=== PATIENT | female | born 1960 | race Caucasian/White ===

== ENCOUNTER → 2016-07-14 | Outpatient (REF) | payer OTHER ==
[2016-07-16 08:11] LABS: Lyme Disease IgG Ab 18 kDa Ban Present (.); Lyme Disease IgG Ab 23 kDa Ban Present (.); Lyme Disease IgG Ab 28 kDa Ban Absent (.); Lyme Disease IgG Ab 30 kDa Ban Absent (.); Lyme Disease IgG Ab 39 kDa Ban Present (.); Lyme Disease IgG Ab 41 kDa Ban Present (.); Lyme Disease IgG Ab 45 kDa Ban Present (.); Lyme Disease IgG Ab 58 kDa Ban Present (.); Lyme Disease IgG Ab 66 kDa Ban Absent (.); Lyme Disease IgG Ab 93 kDa Ban Absent (.); Lyme Disease IgG West Blot Int Positive (.); Lyme Disease IgG/IgM Antibodie 1.12 ISR (0.00-0.90); Lyme Disease IgM Ab 23 kDa Ban Present (.); Lyme Disease IgM Ab 39 kDa Ban Absent (.); Lyme Disease IgM Ab 41 kDa Ban Absent (.); Lyme Disease IgM Ab Quantitati <0.80 index (0.00-0.79); Lyme Disease IgM West Blot Int Negative (.)
== END ==
LOC: M LAB REF 12:07
PROVIDERS: ATTEND Nurse Practitioner Family
DX: R53.83 Other fatigue (principal); R11.0 Nausea

== ENCOUNTER → 2016-08-03 | Outpatient (CLI) | payer OTHER ==
--- NOTE | 2016-08-03 14:14 | REPMRS ---
Patient History The patient states she has not had a clinical breast exam in over a year. Patient is postmenopausal and had first child after 29. Family history of ovarian cancer in mother at age 50 or over, breast cancer in maternal aunt at age 50 or over, and breast cancer in maternal grandmother. Digital Woman Screen Mammo: August 03, 2016 - Exam #: [id number] Bilateral CC and MLO view(s) were taken. Technologist: Patricia Reyes, Technologist Prior study comparison: December 07, 2014, digital woman screen mammo performed at [facility]. February 07, 2011, bilateral digital woman screen mammo performed at [facility]. FINDINGS: The breast tissue is heterogeneously dense. This may lower the sensitivity of mammography. There has been no change in the appearance of the mammogram from the prior studies. There is a moderate amount of residual fibroglandular tissue which is fairly symmetric. There is no interval development of dominant mass, areas of architectural distortion, or clustered microcalcification typical of malignancy. ASSESSMENT: BI-RADS/ACR category 1 mammogram. Negative. Recommendation Routine screening mammogram in 1 year (for women over age 40). This mammogram was interpreted with the aid of an FDA-approved computer-aided dectection system. Electronically Signed By: Yasmani Johnson MD 08/03/16 0353
--- NOTE | 2016-08-09 10:53 | DEXA ---
AP SPINE L1 - L4 1.185 -0.1 0.8 LT FEMUR TOTAL 0.976 -0.3 0.5 RT FEMUR TOTAL 0.995 -0.1 0.6 TOTAL BODY TOTAL OTHER DUAL FEMUR FRAX* ASSESSMENT Risk factors: None. 10 year probability of fracture Major osteoporotic fracture 6.0 % Hip fracture 0.2 % COMMENTS: Normal bone densitometry of the spine and hips. FOLLOW-UP: Recommendation for the next bone density exam: 5 years. MTDD
== END ==
LOC: M WHC 12:49
PROVIDERS: ATTEND Internal Medicine
DX: R92.2 Inconclusive mammogram (principal); Z78.0 Asymptomatic menopausal state; Z80.41 Family history of malignant neoplasm of ovary; M85.80 Other specified disorders of bone density and structure, unspecified site
CPT/HCPCS: 77080; G0202

== ENCOUNTER → 2016-08-18 | Outpatient (REF) | payer OTHER | LOC: M LAB REF 17:07 | PROVIDERS: ATTEND Internal Medicine | DX: D64.9 Anemia, unspecified (principal) ==

== ENCOUNTER 2017-06-28 08:01 | Day surgery (SDC) | payer OTHER ==
[2017-06-28] MEDS: TROPICAMIDE 1% OPHTH SOLN 2ML OD (08:35)
[2017-06-28] MEDS: PROPARACAINE 0.5% OPHTH SOL 15ML OD (08:35)
[2017-06-28] MEDS: PHENYLEPHRINE 2.5% OPHTH SOL 2ML OD (08:35)
[2017-06-28] MEDS: OFLOXACIN 0.3 % (OCUFLOX) OPTH SOL 5ML OD (08:35)
[2017-06-28] MEDS ORDERED: MIDAZOLAM INJ 2 MG/2 ML VIAL (J2250) As Ordered (08:58)
[2017-06-28] MEDS ORDERED: fentaNYL 100 MCG/2 ML INJECTION (J3010) As Ordered (08:58)
[2017-06-28] MEDS: BALANCED SALT IRRIGATION SOLUTION 500ML BAG (FOR OR EYE MACHINE) As Ordered (09:51)
[2017-06-28] MEDS: LIDOCAINE 0.75%/EPINEPHRINE 0.025% IN BSS 1ML SYR INTRACAMERAL (OR ONLY) As Ordered (09:51)
[2017-06-28] MEDS: DUOVISC (0.50ML VISCOAT/0.55ML PROVISC) OPHTH KIT As Ordered (09:51)
[2017-06-28] MEDS: CEFUROXIME 1MG/0.1ML INTRACAMERAL INJ As Ordered (09:51)
[2017-06-28] MEDS: POVIDONE-IODINE 5% OPHTH PREP SOL 30ML As Ordered (09:51)
[2017-06-28] MEDS: ACETYLCHOLINE OPHTH SOLN 1% 2ML (MIOCHOL-E) As Ordered (10:01)
== END 2017-06-28 10:45 | disposition home or self-care (01) ==
LOC: M SDC 08:01
DX: H25.11 Age-related nuclear cataract, right eye (principal)
CPT/HCPCS: 66984

== ENCOUNTER 2017-07-03 07:28 | Day surgery (SDC) | payer OTHER ==
[2017-07-03] MEDS: LR 1,000 ML IV (07:30)
[2017-07-03] MEDS ORDERED: PROPOFOL 200 MG/20 ML VIAL As Ordered ×2 (08:48→09:11)
== END 2017-07-03 09:51 | disposition home or self-care (01) ==
LOC: M OPP 07:28
DX: Z12.11 Encounter for screening for malignant neoplasm of colon (principal); K57.30 Diverticulosis of large intestine without perforation or abscess without bleeding; Z78.0 Asymptomatic menopausal state; Z86.19 Personal history of other infectious and parasitic diseases
CPT/HCPCS: 45378

== ENCOUNTER → 2017-12-06 | Outpatient (REF) | payer OTHER ==
[2017-12-09 00:06] LABS: EBV VIRAL CAPSID AG IgM <36.0 U/mL (0.0-35.9); Lyme Disease IgG/IgM Antibodie <0.91 ISR (0.00-0.90); Lyme Disease IgM Ab Quantitati <0.80 index (0.00-0.79)
== END ==
LOC: M LAB REF 17:29
DX: A69.20 Lyme disease, unspecified (principal); R53.83 Other fatigue
CPT/HCPCS: 86665

== ENCOUNTER → 2018-03-08 | Outpatient (REF) | payer OTHER ==
[2018-03-08 16:09] LABS: SLIDE REVIEW Report; SOURCE PERIPHERAL SMEAR
== END ==
LOC: M LAB REF 15:56
DX: D72.819 Decreased white blood cell count, unspecified (principal)

== ENCOUNTER → 2018-05-30 | Outpatient (CLI) | payer OTHER ==
[~2018-05-30] MED LIST: MULT1TAB18 PO
--- NOTE | 2018-05-30 16:26 | REPMRS ---
Patient History The patient states she had a clinical breast exam in 03/10 Patient is postmenopausal . Family history of ovarian cancer at age 50 or over in mother, breast cancer at age 50 or over in maternal aunt, breast cancer in maternal grandmother, prostate cancer at age 50 or over in father. Digital Woman Screen Mammo: May 30, 2018 - Exam #: [id number] Bilateral CC and MLO view(s) were taken. Technologist: Alla Larson, Technologist Prior study comparison: August 03, 2016, digital woman screen mammo performed at [facility]. December 07, 2014, digital woman screen mammo performed at [facility]. February 07, 2011, bilateral digital woman screen mammo performed at [facility]. FINDINGS: The breast tissue is heterogeneously dense. This may lower the sensitivity of mammography. There is a moderate amount of heterogeneously dense fibroglandular tissue which is fairly symmetric. There is no interval development of dominant mass, architectural distortion, or clustered microcalcification typical of malignancy. There has been no change in the appearance of the mammogram from the prior studies. 3-D tomosynthesis shows no additional findings. Assessment: BI-RADS/ACR category 1 mammogram. Negative Mammogram. Recommendation Routine screening mammogram of both breasts in 1 year (for women over age 40). This patient's Lifetime Breast Cancer RIsk is estimated at 13.5 %. This mammogram was interpreted with the aid of an FDA-approved computer-aided dectection system. Electronically Signed By: Gavino Lopez MD 05/30/18 [id number]
== END ==
LOC: M WHC 12:54
PROVIDERS: ATTEND Internal Medicine
DX: Z12.31 Encounter for screening mammogram for malignant neoplasm of breast (principal); Z78.0 Asymptomatic menopausal state; Z80.41 Family history of malignant neoplasm of ovary; Z80.3 Family history of malignant neoplasm of breast; Z80.42 Family history of malignant neoplasm of prostate

== ENCOUNTER → 2019-02-03 | Outpatient (REF) | payer OTHER | LOC: M LAB REF 12:34 | PROVIDERS: ATTEND Internal Medicine | DX: D64.9 Anemia, unspecified (principal) ==

== ENCOUNTER 2019-03-19 12:15 | Outpatient (RCR) | payer OTHER | END 2019-03-22 | LOC: M PT 12:15 | PROVIDERS: ATTEND Orthopaedic Surgery | DX: Z47.89 Encounter for other orthopedic aftercare (principal); M54.16 Radiculopathy, lumbar region; M47.896 Other spondylosis, lumbar region ==

== ENCOUNTER 2019-04-02 16:00 | Outpatient (RCR) | payer OTHER | END 2019-04-22 | LOC: M PT 16:00 | PROVIDERS: ATTEND Orthopaedic Surgery | DX: M54.5 Low back pain (principal) ==

== ENCOUNTER 2019-11-04 22:59 | Emergency (ER) | payer OTHER ==
[~2019-11-04] VITALS: Ht 162.6 cm; Wt 76.5 kg
[2019-11-04] MEDS ORDERED: METR-265 (23:07)
[2019-11-04] MEDS ORDERED: LEVO500T3 (23:07)
[2019-11-05 00:51] LABS: BASO % 0.6 % (0.0-1.0); EOS # 0.1 10^3/uL (0.0-0.5); EOS % 1.8 % (0.0-3.0); HEMATOCRIT 35.7 % (36.0-47.0); HEMOGLOBIN 11.7 g/dl (12.0-15.5); LYMPH # 1.9 10^3/uL (1.5-5.0); LYMPH % 28.1 % (24.0-44.0); MEAN CORPUSCULAR HEMOGLOBIN 30.8 pg (27.0-33.0); MEAN CORPUSCULAR HGB CONC 32.8 g/dl (32.0-36.5); MEAN CORPUSCULAR VOLUME 93.9 fl (80.0-96.0); MONO # 0.7 10^3/uL (0.0-0.8); NEUTROPHILS # 3.9 10^3/uL (1.5-8.5); NEUTROPHILS % 58.2 % (36.0-66.0); PLATELET COUNT, AUTOMATED 318 10^3/uL (150-450); WHITE BLOOD COUNT 6.6 10^3/uL (4.0-10.0)
[2019-11-05 01:01] LABS: INR 1.11
[2019-11-05 01:02] LABS: PARTIAL THROMBOPLASTIN TIME 32.1 SECONDS (25.0-38.4)
[2019-11-05 01:15] LABS: CALCIUM LEVEL 8.7 MG/DL (8.8-10.2); CREATININE FOR GFR 1.02 MG/DL (0.55-1.30); GLOMERULAR FILTRATION RATE 58.8 (>45); POTASSIUM SERUM 3.7 MEQ/L (3.5-5.1)
[2019-11-05 01:45] VITALS: BP 102/66
== END 2019-11-05 01:49 | disposition home or self-care (01) ==
LOC: M ED 22:59
DX: K64.8 Other hemorrhoids (principal); K62.5 Hemorrhage of anus and rectum; K57.93 Diverticulitis of intestine, part unspecified, without perforation or abscess with bleeding; Z79.899 Other long term (current) drug therapy

== ENCOUNTER → 2020-01-02 | Outpatient (CLI) | payer OTHER ==
[~2020-01-02] MED LIST changes: +GASTROGRAFIN SOLUTION 30ML (Q9963) As Ordered ONE; +ISOVUE-370 76% 100ML VIAL As Ordered ONE; +LEVO500T3; +METR-265
--- NOTE | 2020-01-02 12:57 | REPVR ---
PROCEDURE INFORMATION: Exam: CT Abdomen And Pelvis Without And With Contrast Exam date and time: 01/02/2020 11:40 AM Age: 59 years old Clinical indication: Abdominal pain; Additional info: Llq pain, weight loss TECHNIQUE: Imaging protocol: Computed tomography of the abdomen and pelvis without and with intravenous contrast. Radiation optimization: All CT scans at this facility use at least one of these dose optimization techniques: automated exposure control; mA and/or kV adjustment per patient size (includes targeted exams where dose is matched to clinical indication); or iterative reconstruction. Contrast material: ISOVUE 370; Contrast volume: 100 ml; Contrast route: INTRAVENOUS (IV); COMPARISON: No relevant prior studies available. FINDINGS: Heart: Heart size is mildly enlarged. There is a small hiatal hernia. There is minimal posterior dependent atelectasis at the lung bases. Liver: There may be minimal diffuse fatty liver change. Gallbladder and bile ducts: Normal. No calcified stones. No ductal dilation. Pancreas: Normal. No ductal dilation. Spleen: Normal. No splenomegaly. Adrenals: Normal. No mass. Kidneys and ureters: Normal. No hydronephrosis. Stomach: There are multiple colonic diverticula. There is wall thickening throughout the rectosigmoid colon. There is a small multilobulated collection of lobulated air in the left lower quadrant near midline between proximal sigmoid colon and small bowel loops. This is most likely a combination of pericolonic abscess associated with prior diverticulitis, and adjacent abscess with thick wall and adjacent fat stranding which abuts to small bowel loops anteriorly and posteriorly. Small bowel to small bowel and potentially colonic to small-bowel fistulas are possible. This entire region measures up to 3.5 cm mediolateral by 2.7 cm anterior-posterior, without clearly drainable fluid collection. No bowel dilatation to indicate obstruction. Appendix: No evidence of appendicitis. Vasculature: Unremarkable. No abdominal aortic aneurysm. Lymph nodes: Unremarkable. No enlarged lymph nodes. Bladder: Unremarkable as visualized. Reproductive: Unremarkable as visualized. Bones/joints: There is no acute osseous abnormality. Soft tissues: Unremarkable. IMPRESSION: 1. Small pericolonic abscess from presumed prior diverticulitis, with a component abutting 2 small bowel loops with possible fistula between small bowel loops and potentially between colon and small bowel. 2. Additional findings: Mild cardiomegaly. Small hiatal hernia. Electronically signed by: Tasneem Balderas On 01/02/2020 12:56:24 PM
== END ==
LOC: M RAD 09:39
PROVIDERS: ATTEND Registered Nurse
DX: R10.32 Left lower quadrant pain (principal); R63.0 Anorexia; R11.0 Nausea
CPT/HCPCS: 74178; Q9963; Q9967

== ENCOUNTER → 2020-01-02 | Outpatient (REF) | payer OTHER ==
[~2020-01-02] MED LIST changes: -GASTROGRAFIN SOLUTION 30ML (Q9963) As Ordered ONE; -ISOVUE-370 76% 100ML VIAL As Ordered ONE
== END ==
LOC: M LAB REF 12:18
PROVIDERS: ATTEND Registered Nurse
DX: R10.32 Left lower quadrant pain (principal)

== ENCOUNTER → 2020-01-09 | Outpatient (REF) | payer OTHER | LOC: M LAB REF 16:32 | PROVIDERS: ATTEND Registered Nurse | DX: R10.32 Left lower quadrant pain (principal) ==

== ENCOUNTER → 2020-01-09 | Outpatient (CLI) | payer OTHER ==
[~2020-01-09] MED LIST changes: +GASTROGRAFIN SOLUTION 30ML (Q9963) As Ordered ONE; +ISOVUE-370 76% 100ML VIAL As Ordered ONE
--- NOTE | 2020-01-22 11:58 | REP ---
CT ABDOMEN AND PELVIS WITHOUT AND WITH INTRAVENOUS (IV) CONTRAST: WITH ORAL CONTRAST HISTORY: Pericolonic abscess. COMPARISON: CT study 01/02/2020. CT CONTRAST DOSE: 100 mL of intravenous Isovue-[address] FINDINGS: Preliminary digital damage prevention coordinator radiograph is unremarkable. The lung bases are clear on axial CT images. The liver and the spleen are normal in size and homogeneous in texture on pre- and postcontrast images. No adrenal lesion is seen. No abnormality is noted in the pancreas or gallbladder. The kidneys enhance symmetrically and are morphologically intact. No retroperitoneal mass or adenopathy is observed. Small and large bowel loops are normal in the upper abdomen. Pelvic CT images demonstrate one or two diverticula in the cecum. Appendix is normal. There is diverticulosis in the sigmoid colon. The pericolonic inflammation and pericolonic abscess seen at the time of the 01/02/2020 study is much improved. There is only an 8 mm air bubble in the pericolonic soft tissues and minimal inflammatory change persists. No evidence of free intraperitoneal air is seen. Exam is otherwise unremarkable. IMPRESSION: Findings consistent with improved diverticulitis of the sigmoid colon. An 8 mm air collection remains in place in the improved pericolonic abscess. Pericolonic inflammation is improved. No MTDD
== END ==
LOC: M RAD 11:37
PROVIDERS: ATTEND Registered Nurse
DX: K63.0 Abscess of intestine (principal)
CPT/HCPCS: 74178; Q9963; Q9967

== ENCOUNTER → 2020-02-05 | Outpatient (CLI) | payer OTHER ==
[~2020-02-05] MED LIST changes: -GASTROGRAFIN SOLUTION 30ML (Q9963) As Ordered ONE; -ISOVUE-370 76% 100ML VIAL As Ordered ONE
--- NOTE | 2020-02-05 12:35 | REPMRS ---
Patient History The patient states she has not had a clinical breast exam in over a year. Family history of ovarian cancer at age 50 or over in mother, breast cancer at age 50 or over in maternal aunt, breast cancer in maternal grandmother, prostate cancer at age 50 or over in father. Digital Woman Screen Mammo: February 05, 2020 - Exam #: [id number] Bilateral CC and MLO view(s) were taken. Technologist: Yana Bingham, Technologist Prior study comparison: May 30, 2018, bilateral digital woman screen mammo performed at [facility]. August 03, 2016, digital woman screen mammo performed at [facility]. December 07, 2014, digital woman screen mammo performed at [facility]. FINDINGS: There are scattered fibroglandular densities. The Volpara volumetric breast density category is:B. There has been no change in the appearance of the mammogram from the prior studies. There is a mild amount of scattered fibroglandular density which is fairly symmetric. There is no interval development of dominant mass, architectural distortion, or grouped microcalcification suggestive of malignancy. 3-D tomosynthesis shows no additional findings. Assessment: BI-RADS/ACR category 1 mammogram. Negative Mammogram. Recommendation Routine screening mammogram of both breasts in 1 year (for women over age 40). This patient's Lifetime Breast Cancer Risk is estimated at 13.0 %. This mammogram was interpreted with the aid of an FDA-approved computer-aided dectection system. Electronically Signed By: Gavino Lopez MD 02/05/20 [id number]
== END ==
LOC: M WHC 10:32
PROVIDERS: ATTEND Internal Medicine
DX: Z12.31 Encounter for screening mammogram for malignant neoplasm of breast (principal)

== ENCOUNTER → 2020-03-27 | Outpatient (CLI) | payer OTHER | LOC: M LABSMTC 13:24 → EEVIPCON 13:24 | PROVIDERS: ATTEND Anesthesiology | DX: Z01.812 Encounter for preprocedural laboratory examination (principal); Z20.828 Contact with and (suspected) exposure to other viral communicable diseases ==

== ENCOUNTER 2020-04-01 07:30 | Inpatient (IN) | payer OTHER ==
[~2020-04-01] VITALS: Ht 162.6 cm; Wt 70.9 kg
[2020-04-19] MEDS ORDERED: NAPR500T6 PO (11:09)
--- NOTE | 2020-05-02 19:59 | HPE ---
HISTORY AND PHYSICAL DATE OF ADMISSION: 05/03/2020 ADMITTING DIAGNOSIS: Diverticulosis with history of recurrent diverticulitis. HISTORY OF PRESENT ILLNESS: The patient is a 60-year-old woman who has a history of several episodes of diverticulitis involving her sigmoid colon. The patient had undergone a screening colonoscopy in June of 2017. This showed some small mouth diverticula in small numbers throughout the colon. There were otherwise no abnormalities identified. In 2018 she had an episode of lower abdominal pain that was treated with empiric antibiotic therapy. In October of 2019 she had another episode of lower abdominal pain that was treated based on a clinical diagnosis of antibiotics and resolved. Over Labor Day Weekend in 2019 she developed some left lower quadrant discomfort. She had a CT scan that revealed a small fluid collection with air, consistent with an abscess revealed to the sigmoid colon and adjacent to two loops of small bowel. She was treated with antibiotics and a follow up CT on April 09 showed significant resolution of her inflammatory changes. She was feeling well at the time and reported no discomfort. She however returned to my office in January indicating that she had had some persistent discomfort for about 2 weeks after that episode. We discussed the options of considering a sigmoid resection to address these episodes of recurring diverticulitis. She opted for surgery at that time and was scheduled, but her surgery has been delayed by a positive COVID-19 test on March 27. She was rescheduled and is now to be admitted on the April. She did have a negative COVID test on April 28. The patient is being admitted for a robotic assisted laparoscopic sigmoid colectomy. She is to perform a full mechanical and antibiotic bowel preparation the day before admission. ALLERGIES: The patient denies any known drug allergies. MEDICATIONS: The patient is on no scheduled prescription medications. She was to take Flagyl and Neomycin and Suprep as her bowel prep before admission. PAST MEDICAL HISTORY: The patient's past medical history is significant for: 1. Lyme disease. 2. She tested positive for COVID in early March of 2020. 3. History of several prior episodes of sigmoid diverticulitis with abscess development in December of 2019. PAST SURGICAL HISTORY: The patient's past surgical history is significant for 1. The patient has had a colonoscopy in 2017. 2. She had an ACL repair in 1979. 3. Surgery on the retina of her right eye in 2014. FAMILY HISTORY: The patient's father had prostate cancer and her mother had ovarian cancer. 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 She is a never smoking and reports having one or two alcoholic beverages a week. REVIEW OF SYSTEMS: No history of seizure, stroke, or TIA. She denies any history of chest pain, palpitations or shortness of breath. No wheezing, cough or sputum production. She denies any rectal bleeding. There is no family history of colorectal cancer. She denies constipation or diarrhea. She has no dysuria, hematuria or history of renal stones. She denies any significant bone, joint or back issues. She has no history of DVT or pulmonary embolus. PHYSICAL EXAMINATION: VITAL SIGNS: Most recent height is 64 inches with a reported as 74 kg, giving her a BMI of 28. GENERAL APPEARANCE: She is alert and oriented. SKIN: Warm and dry. HEENT: Sclerae are anicteric. NECK: Supple without mass or bruit. HEART: Regular rate and rhythm. LUNGS: Clear to auscultation bilaterally. ABDOMEN: Thin and flat. She has no sign of hernia. The abdomen is soft and nontender without appreciable mass. EXTREMITIES: No lower extremity edema and she has palpable radial and pedal pulses. IMPRESSION: Sigmoid diverticulosis with recurrent diverticulitis. PLAN: The patient is being admitted on 03 May to undergo a robotic assisted laparoscopic sigmoid colectomy with coloproctostomy. The extent of the resection will be determined at the time of the procedure based on findings. The patient is to perform her bowel preparation the day before admission. She will receive a dose of intravenous antibiotics just preop. She will also receive a dose of preoperative Entereg. The patient was counseled for the surgery to include risks and possible benefits. Risks include but are not limited to: bleeding, infection, scarring, adverse drug reaction, need for further surgery, injury of internal organ, anastomotic leak, hernia, and recurrence of diverticulitis in another area of the colon despite this surgery. The patient had an opportunity to ask questions. She desires to proceed with the surgery as it was described to her. VALORIE
[2020-05-03] VITALS (7 sets, daily range): BP systolic 125–144; BP diastolic 64–98
[2020-05-03 06:47] LABS: HEMATOCRIT 41.4 % (36.0-47.0); HEMOGLOBIN 13.1 g/dl (12.0-15.5); MEAN CORPUSCULAR HEMOGLOBIN 29.2 pg (27.0-33.0); MEAN CORPUSCULAR HGB CONC 31.6 g/dl (32.0-36.5); MEAN CORPUSCULAR VOLUME 92.4 fl (80.0-96.0); PLATELET COUNT, AUTOMATED 279 10^3/uL (150-450); RED BLOOD COUNT 4.48 10^6/uL (4.00-5.40); WHITE BLOOD COUNT 5.2 10^3/uL (4.0-10.0)
[2020-05-03] MEDS ORDERED: ALVIMOPAN 12 MG CAPSULE (ENTEREG) PO ONE (07:00)
[2020-05-03] MEDS ORDERED: LR 1,000 ML IV ONE (07:15)
[2020-05-03] MEDS ORDERED: cefoTEtan DISODIUM 2 GM in D5W MINI-BAG PLUS 50 ML IV ONE (07:15)
[2020-05-03] MEDS ORDERED: ROCURONIUM BROMIDE 50 MG/5 ML VIAL As Ordered ONE ×3 (07:20→09:54)
[2020-05-03] MEDS ORDERED: LIDOCAINE 2% 100MG/5ML SDV (FOR ANES.) As Ordered ONE (07:20)
[2020-05-03] MEDS ORDERED: ONDANSETRON 4MG/2ML VIAL As Ordered ONE ×2 (07:20→09:55)
[2020-05-03] MEDS ORDERED: propofoL 200 MG/20 ML VIAL As Ordered ONE (07:20)
[2020-05-03] MEDS ORDERED: dexameTHASONE 4 MG/ML 1ML VIAL (J1100 PER 1MG) As Ordered ONE (07:20)
[2020-05-03] MEDS ORDERED: fentaNYL 250 MCG/5 ML INJECTION (J3010) As Ordered ONE (07:21)
[2020-05-03] MEDS ORDERED: MIDAZOLAM INJ 2MG/2ML VIAL (J2250 PER 1MG) As Ordered ONE (07:21)
[2020-05-03] MEDS ORDERED: BUPIVACAINE HCL 0.25% 30ML VIAL As Ordered ONE (07:27)
[2020-05-03] MEDS ORDERED: REMIFENTANIL 1MG 3ML VIAL As Ordered ONE ×2 (09:08→09:49)
[2020-05-03] MEDS ORDERED: SUGAMMADEX SODIUM 500 MG/5 ML VIAL (BRIDION) As Ordered ONE (09:55)
[2020-05-03] MEDS ORDERED: HYDROmorphone HCL 2 MG/ML 1ML VIAL (J1170) As Ordered ONE (09:55)
[2020-05-03] MEDS ORDERED: LABETALOL 100MG/20ML VIAL As Ordered ONE (12:54)
[2020-05-03] MEDS ORDERED: ACETAMINOPHEN TAB 650MG DOSE (2X325MG) PO PRN (13:30)
[2020-05-03] MEDS ORDERED: KETOROLAC 30 MG/ML 1ML VIAL IV PRN (13:30)
[2020-05-03] MEDS ORDERED: ONDANSETRON 4MG/2ML VIAL IV PRN ×2 (13:30)
[2020-05-03] MEDS ORDERED: HYDROMORPHONE HCL 0.5 MG/ 0.5 ML SYRINGE (J1170 PER 1) IV PRN (13:30)
[2020-05-03] MEDS ORDERED: MORPHINE 2 MG/ML 1ML VIAL (J2270) IV PRN (13:30)
[2020-05-03] MEDS ORDERED: LR 1,000 ML IV SCH (13:30)
[2020-05-03] MEDS ORDERED: oxyCODONE 5MG TAB PO PRN (13:30)
[2020-05-03] MEDS: fentaNYL 100 MCG/2 ML INJECTION (J3010) IV PRN ×2 (13:54→14:00)
[2020-05-03] MEDS: LR 1,000 ML IV SCH (15:24)
[2020-05-03] MEDS ORDERED: cefoTEtan DISODIUM 1 GM in D5W MINI-BAG PLUS 50 ML IV ONE (20:00)
[2020-05-03] MEDS: ALVIMOPAN 12 MG CAPSULE (ENTEREG) PO SCH (20:55)
[2020-05-03] MEDS: NORCO, ANEXSIA 5/325MG TABLET (HYDROcodone/ACETAMINOPHEN) PO PRN (20:56)
[2020-05-04] MEDS: LR 1,000 ML IV SCH ×3 (00:10→11:26)
[2020-05-04] MEDS: ENOXAPARIN 40MG/0.4ML SYRINGE (J1650 PER 10MG) SC SCH ×2 (00:10→22:34)
[2020-05-04 02:00] VITALS: BP 99/51
[2020-05-04 06:00] VITALS: BP 108/55
[2020-05-04 07:39] LABS: BASO % 0.2 % (0.0-1.0); EOS % 0.1 % (0.0-3.0); HEMOGLOBIN 11.8 g/dl (12.0-15.5); LYMPH # 1.8 10^3/uL (1.5-5.0); LYMPH % 19.5 % (24.0-44.0); MEAN CORPUSCULAR HEMOGLOBIN 29.6 pg (27.0-33.0); MEAN CORPUSCULAR HGB CONC 31.9 g/dl (32.0-36.5); MEAN CORPUSCULAR VOLUME 92.7 fl (80.0-96.0); MONO # 0.8 10^3/uL (0.0-0.8); MONO % 8.8 % (0.0-5.0); NEUTROPHILS # 6.7 10^3/uL (1.5-8.5); NEUTROPHILS % 71.1 % (36.0-66.0); PLATELET COUNT, AUTOMATED 237 10^3/uL (150-450); RED BLOOD COUNT 3.99 10^6/uL (4.00-5.40); WHITE BLOOD COUNT 9.4 10^3/uL (4.0-10.0)
[2020-05-04 08:02] LABS: BLOOD UREA NITROGEN 9 MG/DL (7-18); CARBON DIOXIDE LEVEL 31 MEQ/L (21-32); CHLORIDE LEVEL 106 MEQ/L (98-107); CREATININE FOR GFR 0.99 MG/DL (0.55-1.30); GLOMERULAR FILTRATION RATE > 60.0 (>45); GLUCOSE, FASTING 98 MG/DL (70-100); POTASSIUM SERUM 4.3 MEQ/L (3.5-5.1); SODIUM LEVEL 139 MEQ/L (136-145)
[2020-05-04] MEDS: ALVIMOPAN 12 MG CAPSULE (ENTEREG) PO SCH ×2 (08:11→20:28)
[2020-05-04] MEDS: NORCO, ANEXSIA 5/325MG TABLET (HYDROcodone/ACETAMINOPHEN) PO PRN ×3 (08:12→20:29)
[2020-05-04 10:00] VITALS: BP 110/54
[2020-05-04 14:00] VITALS: BP 110/54
[2020-05-04 18:00] VITALS: BP 127/70
--- NOTE | 2020-05-04 18:59 | RO ---
OPERATIVE NOTE DATE OF OPERATION: 05/03/2020 PREOPERATIVE DIAGNOSIS: Sigmoid diverticulosis with recurring diverticulitis. POSTOPERATIVE DIAGNOSIS: Sigmoid diverticulosis with recurring diverticulitis and chronic abscess with adhesions of the small bowel to the sigmoid colon. PROCEDURE PERFORMED: Robotic-assisted laparoscopic rectosigmoid resection with coloproctostomy with lysis of adhesions. SURGEON: Del Wagner MD WARD SUPERVISOR: Freddy Castro MD whose assistance was essential for creation of the stapled anastomosis with a transanal insertion of the stapler. ANESTHESIA: General. INDICATIONS FOR THE PROCEDURE: The patient is a 60-year-old woman who has had several episodes of sigmoid diverticulitis over the last several years. In December of 2019, she had an episode that caused symptoms for more prolonged period of time. A CT scan identified a small abscess medial to the colon and adjacent to several small bowel loops. She had another attack subsequent to this. She elected to proceed with a sigmoid colectomy to try to reduce the risk of future episodes. OPERATIVE PROCEDURE: The patient performed a full mechanical and antibiotic bowel preparation at home. On the morning of surgery, she presented and was brought to the operating room. She was placed on the table in a supine position. She was placed under general endotracheal anesthesia. A Sterling catheter was inserted. TEDs and sequentials were utilized. She was moved into a low lithotomy position with her lower extremities in padded leg holders. The patient's abdomen was prepped and draped in a sterile fashion. I would note that during the prep, I performed a digital rectal examination that showed no evidence of anal stenosis and there were no palpable anorectal lesions. The patient's abdomen was prepped and draped sterilely. 1/4% Marcaine was infiltrated at the trocar sites as needed. The initial trocar site was high in the left upper quadrant. A Veress needle was inserted and after positive hanging drop test, an 8 mm robotic port was placed over a 5 mm scope and advanced to through the abdominal wall without difficulty. A second 8 mm port was placed just to the left of the midline in the left upper quadrant and a third port was placed just below the umbilicus. This was a 12 mm port. A final 8 mm port was placed low in the right lower quadrant. The patient was tilted to a very slight Trendelenburg position. The patient cart of the [email or web address] system was brought into position and the endoscope port was docked to the port in the left upper quadrant. Targeting took place in the left lower quadrant. The remaining robotic arms were then docked to the appropriate ports. A pair of endoscopic scissors, a fenestrated bipolar and a grasping retractor were then inserted. I then moved to the control console to proceed with the operation. Initially I inspected along the left side of the colon and divided a few filmy adhesions at the area of the juncture of the descending and sigmoid colons. The dissection of the descending colon progressed up along the entire length of the descending colon to just the level of the splenic flexure. The colon was mobilized through the vascular plane significantly. The dissection was then carried more distally and the patient was moved into a steeper Trendelenburg position. The patient was noted to have some significant adhesions of the more distal sigmoid colon to the anterior abdominal wall and left lateral wall of the pelvis with stringy adhesions. Two loops of small bowel were found densely adherent to the medial aspect of the sigmoid colon. These two loops of bowel were carefully dissected away using a combination of sharp and cautery dissection. In the course of dissection, a small collection of fluid containing debris and granulation tissue was opened. Initially I thought I had perhaps entered the lumen of the small bowel but in the course of further dissection, it was clear that this probably represented the remnants of her previous abscess with the bowel densely adherent and walling off this collection of fluid. These two loops of bowel were freed completely and the debris was irrigated and removed. The attachments in the pelvis were divided. A site for division of the colon was selected approximately at the juncture of the descending and sigmoid colons. An opening was created through the mesentery and the colon was stapled with a 45 mm robotic stapler with a green load. The mesentery was then divided. Dissection was then carried distally, freeing any lateral attachments of the sigmoid colon and dividing the mesentery as the bowel was retracted superiorly. As this was not a cancer diagnosis, the dissection was carried closer to the wall of the bowel to avoid any retroperitoneal structures. The dissection was carried down across the pelvic brim. I carried the dissection down to what appeared to be normal supple rectosigmoid. The posterior mesentery was then divided to the wall of the bowel and the bowel was transected with a robotic stapling device. The specimen was set aside. Trial approximation of the descending colon and the rectosigmoid area showed that they would reach together without significant tension. I then opened the end of the descending colon. The anvil of a 29 mm EEA stapler was inserted into the abdomen by Dr. Castro, working through the 12 mm port site. This was placed into the end of the colon and a purse-string suture of 2-0 V-Loc was placed to close the end of the colon. A small amount of fibrofatty tissue at the end of the colon was debrided so it would not interfere with a stapled anastomosis. I then attempted to advance the stapler into the rectum. Dr. Castro was temporarily called away. With the robot positioned so that I could easily view the pelvis, I gently dilated the rectum and attempted to advance the stapler to the end of the rectosigmoid without success. I therefore returned to the control console and dissected free and resected an additional 3-4 cm segment of the remaining rectosigmoid. When Dr. Castro returned, he also attempted to advance the stapler without success as I was working from the control console. I dissected the rectosigmoid stump, it was clear that there was a fairly sharp transition in the luminal diameter and I was required to resect an additional several cm length of the remaining rectosigmoid. At this point, I believe the dissection was clearly down into the upper rectum. This was stapled with a robotic linear cutter stapler with a green load. At this point, the stapler would advance to the end of the rectal stump. The post of the stapler was advanced and I attached the anvil. The stapler was closed by Dr. Castro and then fired and removed. Inspection showed two intact donuts of tissue within the stapler. While I monitored the area with the robotic camera, Dr. Castro performed a limited sigmoidoscopy with a colonoscope. The anastomosis appeared excellent with no evidence of any air leak on insufflation of air. There was no bleeding seen. We removed the scope. The irrigation was removed from the abdomen. The robotic instruments were removed and the robot undocked. I returned to the patient's side. A short transverse incision was made through the right lower quadrant 12 mm port site. The muscle fibers were spread and the fascia incised. A small Jonathan retractor was inserted. The specimen was delivered through this. This was a 12-15 cm segment of colon with attached mesentery. The two smaller segments were also removed at this time. The retractor was removed. The posterior fascia of the rectus sheath was closed with a running suture of #1 Vicryl. The muscles were gently approximated with several Chromic sutures. The anterior fascia was then closed with interrupted simple sutures of #1 Vicryl. The wound was irrigated and hemostasis was ensured. The skin incisions were all closed with buried 4-0 Vicryl and Steri-Strips. Some additional 1/4% Marcaine was infiltrated around the larger incision. The patient tolerated the procedure well without apparent complication. Her Sterling catheter was removed. She was awakened in the operating room, extubated, moved to the recovery room in stable condition. VALORIE
[2020-05-04 22:00] VITALS: BP 112/59
[2020-05-05 02:00] VITALS: BP 113/62
[2020-05-05 06:00] VITALS: BP 133/75
[2020-05-05] MEDS: ALVIMOPAN 12 MG CAPSULE (ENTEREG) PO SCH ×2 (09:22→21:55)
[2020-05-05] MEDS: NORCO, ANEXSIA 5/325MG TABLET (HYDROcodone/ACETAMINOPHEN) PO PRN ×2 (09:23→14:50)
[2020-05-05 10:00] VITALS: BP 125/67
[2020-05-05 14:00] VITALS: BP 124/81
[2020-05-05] MEDS: ENOXAPARIN 40MG/0.4ML SYRINGE (J1650 PER 10MG) SC SCH (21:56)
[2020-05-05 22:00] VITALS: BP 127/70
[2020-05-06] MEDS: NORCO, ANEXSIA 5/325MG TABLET (HYDROcodone/ACETAMINOPHEN) PO PRN (00:30)
[2020-05-06 02:00] VITALS: BP 109/58
[2020-05-06 06:00] VITALS: BP 110/61
[2020-05-06] MEDS ORDERED: HYDR-3715 PO (09:05)
[2020-05-06] MEDS: ALVIMOPAN 12 MG CAPSULE (ENTEREG) PO SCH (09:32)
--- NOTE | 2020-05-07 13:33 | IPN ---
PROGRESS NOTE DATE: 05/05/2020 SUBJECTIVE: The patient is now postop day #2 from her robotic-assisted laparoscopic sigmoid colectomy. She had tolerated clear liquids well and was advanced to a regular diet yesterday. She still reports no bowel movement, but has had a small amount of flatus. OBJECTIVE: VITAL SIGNS: Show that she has been afebrile over the past 24 hours. Her pulse is in the 60s generally. Blood pressure is excellent. INTAKE AND OUTPUT: Show that yesterday she had 5000 mL in with 3200 out. GENERAL APPEARANCE: The patient is lying quietly in the hospital bed. She is alert and oriented. She does note that she had some sharper epigastric pain earlier today, which required some pain medication. HEART: Shows a regular rate and rhythm and she is not tachycardic. LUNGS: Clear. ABDOMEN: Flat. She does have bowel sounds present. Her dressings are clean and dry. She has no undo tenderness. IMPRESSION: The patient is overall doing quite well from her surgery. She is having a little more discomfort in her epigastrium today and has not yet had a bowel movement. PLAN: The patient was counseled to anticipate return of bowel function and that this is likely to be loose or diarrhea at first. She was advised that she may have less warning about an impending bowel movement and maybe a little less able to discern air versus fluid. She is encouraged to be up ambulating and we will see if she is ready to go home in the morning.
--- NOTE | 2020-05-07 13:37 | IPN ---
PROGRESS NOTE DATE: 05/04/2020 HISTORY: Patient is now postoperative day #1 from a robotic-assisted laparoscopic sigmoid resection with coloproctostomy for diverticulosis with recurring diverticulitis. Vital signs show that she has been afebrile over the past 24 hours since surgery. Her pulse is in the 70s generally with a good blood pressure. Intake and output show that yesterday she had 5200 mL recorded in with 2900 recorded out. Her urine output has been brisk. She has been tolerating clear liquids well. PHYSICAL EXAMINATION: Patient is lying quietly in the hospital bed. She is alert and appears fairly comfortable. Skin is warm and dry. Heart and lung exams are normal. The abdomen is flat. Her dressings are clean and dry. She has a few faint bowel sounds present, and the abdomen is nondistended without any undue tenderness. LABORATORY STUDIES: Today show a white count of 9, hemoglobin 12, hematocrit 37, and a platelet count of 237,000. Differential count shows 71% neutrophils, 20% lymphocytes, and 9% monocytes. Chemistry profile shows normal electrolytes, BUN, creatinine, and glucose. IMPRESSION: Patient is doing very well postoperative day #1 from her sigmoid colectomy. She has not yet had a bowel movement. She has been tolerating liquids very well and voiding without difficulty. PLAN: Patient will be advanced to a regular diet. Her intravenous (IV) fluid will be discontinued. One of her two saline locks will be discontinued. I would anticipate she will be ready for discharge in the next 2 days or so.
--- NOTE | 2020-05-07 13:37 | IPN ---
PROGRESS NOTE DATE: 05/06/2020 SUBJECTIVE: The patient is now postop day #3 from her robotic-assisted sigmoid colectomy for diverticulosis with recurring diverticulitis. Her pathology report has returned and this revealed a segment of colon with diverticulosis, but no malignancy was identified. The patient reports that the pain she had yesterday has remitted and she is feeling much better. OBJECTIVE: VITAL SIGNS: Show that she has been afebrile over the past 24 hours. Her pulse is in the 50s to 60s and her blood pressure is excellent. INTAKE AND OUTPUT: Shows that she had 1000 mL recorded in yesterday with urine output of 1150. She does report that she has had bowel movements that are somewhat loose, though these are not recorded on her intake and output form. GENERAL APPEARANCE: The patient is lying quietly in the hospital bed. She is alert and oriented. She appears comfortable. HEART: Shows a regular rhythm. LUNGS: Clear. ABDOMEN: Flat and soft. Her dressings are removed and her incisions are all clean and healing well with Steri-Strips in place. IMPRESSION: The patient is doing very well now three days postop from her sigmoid colectomy. PLAN: The patient will be discharged home. We discussed pain management and I will provide her a prescription for ten [place] tablets that she can use on an as needed basis. She was otherwise advised to utilize [id number] pain medications as needed for discomfort. She can take a regular diet. She was encouraged to participate in light activities, but was advised against any strenuous activity or lifting greater than 20 to 25 pounds. She can shower as desired, but was advised to leave the Steri-Strips in place as long as they last. She will follow-up with me in two to three weeks or call sooner for any problems.
== END 2020-05-06 12:58 | disposition home or self-care (01) | DRG 331 ==
LOC: M OR 05-03 06:18 → M MSPAV 05-03 15:11
PROVIDERS: ADMIT Surgery; ATTEND Surgery
PROC: 8E0W4CZ Robotic Assisted Procedure of Trunk Region, Percutaneous Endoscopic Approach (ICD-10-PCS; 2020-05-03)
PROC: 0DBN4ZZ Excision of Sigmoid Colon, Percutaneous Endoscopic Approach (ICD-10-PCS; principal; 2020-05-03 07:30)
DX: K57.32 Diverticulitis of large intestine without perforation or abscess without bleeding (principal); Z86.16 Personal history of COVID-19

== ENCOUNTER → 2020-04-22 | Outpatient (CLI) | payer OTHER ==
[~2020-04-22] MED LIST changes: +NAPR500T6 PO
--- NOTE | 2020-04-22 16:27 | ECGEPIP ---
[facility] Test Date: 2020-04-22 Pat Name: DEBBIE PALOMARES Department: Room: - Gender: Female [employer]: DEBBIE : 1960 Requested By: Bernard Ordonez Order Number: [id number] Reading MD: Sergio Swift Measurements Intervals [place] Rate: 50 P: 52 IN: 153 QRS: 37 QRSD: 98 T: 40 QT: 429 QTc: 392 Interpretive Statements Sinus bradycardia Early anterior R wave progression Early repolarization Comparison tracing not on file Electronically Signed on 04-22-2020 16:26:48 EST by Sergio Swift
== END ==
LOC: M EKG 08:32
PROVIDERS: ATTEND Anesthesiology
DX: Z01.818 Encounter for other preprocedural examination (principal)

== ENCOUNTER → 2020-04-28 | Outpatient (CLI) | payer OTHER | LOC: M LABSMTC 10:31 | PROVIDERS: ATTEND Anesthesiology | DX: Z01.812 Encounter for preprocedural laboratory examination (principal); Z20.822 Contact with and (suspected) exposure to COVID-19 ==

== ENCOUNTER → 2021-11-24 | Outpatient (CLI) | payer OTHER ==
[~2021-11-24] MED LIST changes: +HYDR-3715 PO; +LEVO1TAB39; -LEVO500T3
== END ==
LOC: M WUC 09:17
PROVIDERS: ATTEND Internal Medicine
DX: R05.9 Cough, unspecified (principal)

== ENCOUNTER → 2022-02-16 | Outpatient (CLI) | payer OTHER | LOC: M WHC 13:11 | PROVIDERS: ATTEND Obstetrics & Gynecology | DX: Z12.31 Encounter for screening mammogram for malignant neoplasm of breast (principal) ==

== ENCOUNTER → 2023-03-06 | Outpatient (CLI) | payer OTHER | LOC: M WHC 11:43 | PROVIDERS: ATTEND Obstetrics & Gynecology | DX: Z12.31 Encounter for screening mammogram for malignant neoplasm of breast (principal) ==

== ENCOUNTER → 2024-03-25 | Outpatient (CLI) | payer MEDICARE, OTHER ==
[~2024-03-25] MED LIST changes: +NAPR-1405 PO; -NAPR500T6 PO
== END ==
LOC: M WHC 13:15
PROVIDERS: ATTEND Obstetrics & Gynecology
DX: Z12.31 Encounter for screening mammogram for malignant neoplasm of breast (principal); R92.333 Mammographic heterogeneous density, bilateral breasts

== ENCOUNTER → 2025-04-06 | Outpatient (CLI) | payer MEDICARE, OTHER | LOC: M WHC 12:39 | PROVIDERS: ATTEND Obstetrics & Gynecology | DX: Z12.31 Encounter for screening mammogram for malignant neoplasm of breast (principal); Z13.820 Encounter for screening for osteoporosis; M85.88 Other specified disorders of bone density and structure, other site; R92.323 Mammographic fibroglandular density, bilateral breasts ==